=== PATIENT | female | born 2000 | race African-American/Black ===

== ENCOUNTER 2018-03-26 13:17 | Emergency (ER) | payer SELFPAY | END 2018-03-26 15:30 | disposition left against medical advice (07) | LOC: ERS 13:17 | DX: Z53.21 Procedure and treatment not carried out due to patient leaving prior to being seen by health care provider (principal) | CPT/HCPCS: 93005 ==

== ENCOUNTER 2018-04-30 16:30 | Day surgery (SDC) | payer OTHER ==
[2018-04-30 16:51] VITALS: BMI 22.4
[2018-04-30 16:56] VITALS: BP 103/63; TEMP 98.9
[2018-04-30 17:53] LABS: Bilirubin Negative (Negative); Blood, Urine Negative (Negative); Clarity CLOUDY (Clear); Glucose, Urine (Dipstick) Negative (Negative); Leukocyte Small (Negative); Nitrite Negative (Negative); Protein, Urine (Dipstick) Negative (Neg-Trace); Specific Gravity, Urine 1.019 (1.002-1.036)
[2018-04-30 17:55] LABS: Bacteria/HPF None Seen HPF (None Seen); Hyaline Casts/LPF 7-10 HYALINE CAST LPF (0-3 Hyaline); Pathc Cast-AUWi Flag 1.01 (0-2.49); RBC/HPF 0-3 HPF (0-3)
[2018-04-30 17:56] LABS: Renal Epithelial None Seen HPF (0-3); Transitional Epithelial 0-3 HPF (0-3)
--- NOTE | 2018-04-30 18:01 | HP ---
DATE OF ADMISSION: 04/30/2018 TIME OF EVALUATION: 1725 LOCATION: Labor and Delivery. This is a patient of Sanjana Torres at [facility]. REASON FOR EVALUATION: Pelvic pain at 29 weeks and 5 days. HISTORY OF PRESENT ILLNESS: This is a 17-year-old G1, P0 at 29 weeks and 5 days, patient of Sanjana Brian, who arrives with left back pain that radiates up and down her leg. She denies contractions o r leakage of fluid. She has good movement. She denies any recent trauma. She denies dysuria or fever. She denies hitting her back or any localized symptoms. REVIEW OF SYSTEMS: Complete review of systems was checked and is otherwise negative unless specified in the HPI. It is also important to note, however, that one significant positive was also that she has had on and off clear discharge for the last several weeks, but nothing that looks like a gush of fluid. She states that she sometimes does wear a panty liner for this discharge. PAST MEDICAL HISTORY: Negative. PAST SURGICAL HISTORY: Negative. ALLERGIES: None. OB HISTORY: She is a G1, P0. PHYSICAL EXAMINATION: VITAL SIGNS: The patient's blood pressure is 103/63, pulse is 117, temperature is 98.9. GENERAL: Clinically, she is in no acute distress. ABDOMEN: Soft and nontender. There is no costovertebral angle tenderness. There is no evidence of vaginal bleeding or ruptured membranes on perineal inspection. Cervical exam is currently deferred a s there are no complaints of contractions. INTERVENTIONS ORDERED: I have ordered an AmniSure as well as a cath UA. I have also ordered a compl ete metabolic profile for conservative care. MONITORS: heart tones are in the 140s-150s with moderate variability and accelerations. There is no evidence of decelerations. There are no real contractions on tocodynamometer except may be some mild irritability. ASSESSMENT: This is a 17-year-old G1, P0 at 29 weeks and 5 days, patient of Sanjana Torres, with lik roberto discomforts of . There is nothing on exam that points towards costovertebral angle tend erness or pyelonephritis. PLAN: 1. Check labs. 2. Due to vaginal discharge, I have ordered an AmniSure to make sure it is not rupture, but there is no evidence on the history of abnormal discharge that makes me suspect a BV, Trichomonas or yeast. 3. If her labs are normal, we may consider outpatient care. 4. I deferred a cervical exam as there is no luisa evidence of contractions or contraction complaint .
[2018-04-30 18:11] LABS: Amnisure Test No Membranes Rupture (No Rupture)
[2018-04-30 18:12] LABS: Amnisure Internal Control QC ACCEPTABLE (ACCEPTABLE)
--- NOTE | 2018-04-30 18:18 | PDOC.EVN ---
Event Note - Event Note Event Note: Amnisure negative UA with no bacteria seen, but small WBCs (also some squ cells). No sxs of UTI. I do not feel urine is c/u infection and there is no evidence of pyelo. My DX is discomforts of at this time.
[2018-04-30 18:31] LABS: ALT (SGPT) 7 U/L (8-55); AST (SGOT) 15 U/L (5-30); Albumin 3.6 g/dL (3.5-5.0); Alkaline Phosphatase 86 U/L (40-150); Anion Gap 10 mmol/L (10-20); BUN (Urea Nitrogen) 9 mg/dL (8.4-21.0); Bilirubin, Total 0.4 mg/dL (0.2-1.2); Calc. Creatinine Clearance 131 mL/min (70-130); Calcium 8.9 mg/dL (7.8-10.44); Carbon Dioxide 23 mmol/L (22-29); Chloride 106 mmol/L (98-107); Estimated GFR-MDRD Greater than 90; Globulin 3.5 g/dL (2.4-3.5); Glucose 80 mg/dL (70-105); Potassium 3.6 mmol/L (3.5-5.1); Protein, Total 7.1 g/dL (6.0-8.3); Sodium 135 mmol/L (136-145)
== END 2018-04-30 18:40 | disposition home health service (06) ==
LOC: L&D/OP 16:30
PROVIDERS: ATTEND Advanced Practice Midwife
DX: O99.89 Other specified diseases and conditions complicating pregnancy, childbirth and the puerperium (principal); R10.2 Pelvic and perineal pain; Z3A.29 29 weeks gestation of pregnancy
CPT/HCPCS: 36415; 51701; 80053; 81003; 81015; 84112; 99283

== ENCOUNTER 2018-05-10 15:45 | Day surgery (SDC) | payer OTHER ==
[2018-05-10 16:34] VITALS: BMI 23.2
[2018-05-10 17:42] LABS: #Basophils 0.1 thou/uL (0.0-0.2); #Eosinphils 0.1 thou/uL (0.0-0.7); #Lymphocytes 1.5 thou/uL (1.20-3.40); #Monocytes 0.5 thou/uL (0.11-0.59); #Neutrophils 9.1 thou/uL (1.40-6.50); %Basophils 0.7 % (0.0-1.0); %Eosinophils 0.8 % (0.0-10.0); %Lymphocytes 13.5 % (28.0-48.0); %Monocytes 4.8 % (0.0-4.0); %Neutrophils 80.2 % (31.0-61.0); Hemoglobin 9.9 g/dL (12.0-16.0); Mean Corpuscular HGB CONC 31.1 g/dL (32.0-36.0); Mean Corpuscular Hemoglobin 24.7 pg (25.0-35.0); Mean Corpuscular Volume 79.4 fL (78.0-98.0); Platelet Count 286 thou/uL (130-400); RBC Distribution Width 12.4 % (11.5-14.5); White Blood Cell (WBC) Count 11.3 thou/uL (4.8-10.8)
[2018-05-10] MEDS ORDERED: Lactated Ringer's 1,000 ML IV SCH ×2 (17:45→19:45)
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
[2018-05-10 18:04] LABS: ALT (SGPT) 8 U/L (8-55); AST (SGOT) 17 U/L (5-30); Albumin 3.8 g/dL (3.5-5.0); Alkaline Phosphatase 98 U/L (40-150); Anion Gap 13 mmol/L (10-20); BUN (Urea Nitrogen) 9 mg/dL (8.4-21.0); Bilirubin, Total 0.3 mg/dL (0.2-1.2); Calc. Creatinine Clearance 131 mL/min (70-130); Calcium 8.9 mg/dL (7.8-10.44); Carbon Dioxide 23 mmol/L (22-29); Chloride 106 mmol/L (98-107); Estimated GFR-MDRD Greater than 90; Globulin 3.3 g/dL (2.4-3.5); Glucose 74 mg/dL (70-105); Magnesium 1.6 mg/dL (1.7-2.2); Potassium 3.8 mmol/L (3.5-5.1); Protein, Total 7.1 g/dL (6.0-8.3); Sodium 138 mmol/L (136-145)
[2018-05-10 18:52] LABS: Bilirubin Negative (Negative); Blood, Urine Negative (Negative); Clarity CLEAR (Clear); Glucose, Urine (Dipstick) Negative (Negative); Leukocyte Moderate (Negative); Nitrite Negative (Negative); Protein, Urine (Dipstick) Trace mg/dL (Neg-Trace); Specific Gravity, Urine 1.012 (1.002-1.036); pH, Urine 7.5 (5.0-9.0)
[2018-05-10 18:54] LABS: Hyaline Casts/LPF 0-3 HYALINE CAST LPF (0-3 Hyaline); Pathc Cast-AUWi Flag 0.29 (0-2.49); RBC/HPF 0-3 HPF (0-3)
[2018-05-10] MEDS ORDERED: Magnesium 2 GM/50 ML 2 GM in Premix Bag 1 BAG IVPB SCH (19:00)
[2018-05-10 19:03] LABS: Amphetamine Not Detected (NotDetected); Barbiturates Screen Not Detected (NotDetected); Benzodiazepine Screen Not Detected (NotDetected); Cocaine Metabolite Screen Not Detected (NotDetected); Medtox Control Line Valid? VALID (VALID); Medtox Reader # READER 1; Methadone Not Detected (NotDetected); Methamphetamine Not Detected (NotDetected); Opiate Screen Not Detected (NotDetected); Oxycodone Screen Not Detected (NotDetected); Phencyclidine (PCP) Not Detected (NotDetected); THC/Cannabinoid Screen Not Detected (NotDetected); Tricyclic Screen Not Detected (NotDetected)
[2018-05-10 19:13] LABS: Bacteria/HPF 1+ HPF (None Seen); Yeast-All Forms None Seen HPF (None Seen)
[2018-05-10 19:14] LABS: Trichomonas/HPF None Seen HPF (None Seen)
== END 2018-05-10 20:30 | disposition home or self-care (01) ==
LOC: L&D/OP 15:45
PROVIDERS: ATTEND Obstetrics & Gynecology
DX: O99.89 Other specified diseases and conditions complicating pregnancy, childbirth and the puerperium (principal); R55 Syncope and collapse; Z3A.31 31 weeks gestation of pregnancy
CPT/HCPCS: 80053; 80306; 81003; 81015; 83735; 85025; 87086; 93005; 93010; 96361; 96365; 96366; 99284

== ENCOUNTER 2018-07-12 07:07 | Day surgery (SDC) | payer OTHER ==
[2018-07-12 07:44] VITALS: BMI 25.1
--- NOTE | 2018-07-12 08:34 | PDOC.LDHP ---
Labor and Delivery H&P Chief complaint: loss of fluid HPI: Here for possible LOF Patient of Ayanna Torres HPI: 18 yo G1 with EDC 07/11/18, here with LOF at 0600...wet her panty liner. No VB, good FM, no HAs. Review of Systems: complete ROS performed and as per HPI Current gestational age (weeks): 40 (1 day) Due date: 07/11/18 Dating criteria: last menstrual period Grav: 1 Para: 0 Current complications: none Abnormal US findings: No Current medications: pre- vitamins Previous surgical history: none Allergies/Adverse Reactions: Allergies Allergy/AdvReac Type Severity Reaction Status Date / Time No Known Allergies Allergy Verified 05/10/18 16:32 - Physical Exam Vital signs reviewed and normal: yes (114/70s afebrile) General: NAD Heart: RRR Lungs: CTAB Abdomen: gravid (size appropriate) Extremeties: no edema FHT: category 1 (130-140s) [place] contractions every: rare - Vaginal Exam cm dilated: 1 (at most, per RN exam) Effacement: 75% Station: -1 - Assessment Possible LOF at full term; GBS negative; primiparous. - Plan Plan: observation in L&D (I have ordered amnisure as screen; then I will follow up with sterile spec exam; FHTs cat 1)
[2018-07-12 08:35] LABS: Amnisure Test No Membranes Rupture (No Rupture)
[2018-07-12 08:36] LABS: Amnisure Internal Control QC ACCEPTABLE (ACCEPTABLE)
--- NOTE | 2018-07-12 09:44 | PDOC.EVN ---
Event Note - Event Note Event Note: Amnisure negative SSE pending
--- NOTE | 2018-07-12 10:10 | PDOC.EVN ---
Event Note - Event Note Event Note: sterile speculum explain to the patient. Exam performed by me. There is evidence of vaginal yeast. There is no evidence of ROM. Cough test negative. We will treat with diflucian orally. Has follow up with Sanjana Torres.
[2018-07-12] MEDS ORDERED: Fluconazole 100 MG TAB PO SCH (10:15)
== END 2018-07-12 11:05 | disposition home or self-care (01) ==
LOC: L&D/OP 07:07
PROVIDERS: ATTEND Advanced Practice Midwife
DX: O99.89 Other specified diseases and conditions complicating pregnancy, childbirth and the puerperium (principal); N89.8 Other specified noninflammatory disorders of vagina; Z3A.40 40 weeks gestation of pregnancy; Z79.899 Other long term (current) drug therapy
CPT/HCPCS: 84112

== ENCOUNTER 2018-07-13 21:51 | Inpatient (IN) | payer OTHER ==
[2018-07-13 22:24] VITALS: BMI 25.1
[2018-07-13 22:40] LABS: Amnisure Test RUPTURE DETECTED (No Rupture)
[2018-07-13 22:41] LABS: Amnisure Internal Control QC ACCEPTABLE (ACCEPTABLE)
[2018-07-13] MEDS ORDERED: Ibuprofen 800 MG TAB PO PRN (22:51)
[2018-07-13] MEDS ORDERED: Lidocaine 1% (PF) 30 ML VIAL SC PRN (22:51)
[2018-07-13] MEDS ORDERED: Ondansetron PF 4 MG/2 ML Vial IVP PRN (22:51)
[2018-07-13] MEDS ORDERED: NS / Oxytocin 40 units/1000ml 1,000 ML IV PRN (22:51)
[2018-07-13] MEDS ORDERED: HYDROcodone/Acetaminophen 5/325 mg Tablet PO PRN ×2 (22:51)
[2018-07-13] MEDS ORDERED: NS w/ Oxytocin 10 units 500 ML IV SCH (23:00)
[2018-07-13] MEDS ORDERED: Lactated Ringer's 1,000 ML IV SCH (23:00)
[2018-07-13] MEDS: Lactated Ringer's 1,000 ML IV SCH (23:24)
[2018-07-13 23:35] LABS: Hemoglobin 9.5 g/dL (12.0-16.0); Mean Corpuscular Hemoglobin 24.2 pg (25.0-35.0); Mean Corpuscular Volume 73.2 fL (78.0-98.0); Mean Platelet Volume 7.6 fL (7.4-10.4); Platelet Count 252 thou/uL (130-400); RBC Distribution Width 14.4 % (11.5-14.5); Red Blood Cell (RBC) Count 3.92 mill/uL (4.00-5.20); White Blood Cell (WBC) Count 16.9 thou/uL (4.8-10.8)
[2018-07-14 00:14] LABS: HBSAg Index 0.26 S/CO (0-0.99); Hep B Surf Ag Non-Reactive S/CO (NonReactive)
[2018-07-14 00:18] LABS: Syphilis Antibody Nonreactive (Nonreactive); Syphilis Antibody Index 0.05 S/CO (<1.00 Non-Reactive)
[2018-07-14] MEDS: Lactated Ringer's 1,000 ML IV SCH ×3 (02:57→17:04)
[2018-07-14] MEDS ORDERED: Fentanyl 4 mcg/Bup 0.1% Cadd 100 ML ONE (03:30)
[2018-07-14] MEDS ORDERED: Lidocaine 1.5%/Epinephrine 1:200,000 5 ML AMPUL IJ ONE (03:30)
[2018-07-14] MEDS ORDERED: Naloxone HCl 0.4 mg/ml Vial IVP PRN ×4 (04:25→10:21)
[2018-07-14] MEDS ORDERED: Eucerin (Mineral Oil/Petrolatum,White) 30 gm Jar TOP PRN ×2 (04:25→10:21)
[2018-07-14] MEDS ORDERED: Lactated Ringer's 500 ML IV PRN (04:25)
[2018-07-14] MEDS ORDERED: ePHEDrine/0.9% NaCl/PF SYRINGE 50 mg/10 ml SLOW IVP PRN (04:25)
[2018-07-14] MEDS ORDERED: Acetaminophen 325 MG TAB PO PRN (04:25)
[2018-07-14] MEDS ORDERED: Ondansetron PF 4 MG/2 ML Vial IVP PRN ×2 (04:25→10:21)
[2018-07-14] MEDS ORDERED: diphenhydrAMINE 50 MG/ML VIAL IVP PRN ×2 (04:25→10:21)
[2018-07-14] MEDS ORDERED: Promethazine HCl 25 MG/ML VIAL IM PRN ×2 (04:25→10:21)
[2018-07-14] MEDS ORDERED: Fentanyl 4 mcg/Bupivacaine 0.1% Cassette 100 ML EPIDURAL SCH (04:30)
[2018-07-14] MEDS ORDERED: Communication Order-Pharmacy FS SCH ×2 (04:30→10:30)
[2018-07-14] MEDS ORDERED: Acetaminophen 1,000 MG in Premix Bag 1 BAG IVPB PRN (05:13)
--- NOTE | 2018-07-14 05:16 | PDOC.EVN ---
Event Note - Event Note Event Note: Called with maternal fever. dx with chorioammionitis. Amp 2gm q6hr and gentamycin 5mg/kg q24 and iv tylenol ordered.
[2018-07-14] MEDS: Ampicillin 2 GM in Sodium Chloride 0.9% 100 ML IVPB SCH ×4 (05:45→23:27)
[2018-07-14] MEDS: Gentamicin Sulfate 290 MG in Sodium Chloride 0.9% 100 ML IVPB SCH (06:20)
--- NOTE | 2018-07-14 08:29 | PRG ---
DATE OF SERVICE: 07/14/2018 INTRAPARTUM PROGRESS NOTE PRIMARY INSOLE BOTTOM FILLER: Ms. Sanjana Torres CNM SUBJECTIVE: The patient is a 18-year-old primi, who was admitted late last night at 40 weeks' gestation with complaints of leakage of fluid. By history, she could experience rupture of membranes over 24 hours ago at the time of admission. She was admitted for augmentation of her contractions. Overnight, she has been on Pitocin with the baby having difficulty tolerating contractions at times, requiring Pitocin to be turned off this morning for repetitive late decelerations. Since that time, the patient has been placed on oxygen and on the left lateral position, baby has recovered appropriately. In the meantime, overnight, patient has spiked a fever up to 102 and has been placed on ampicillin and gentamicin, and has been given IV Tylenol. Her primary OB is Ms. Sanjana Torres, who will be resuming care this morning. Plan at this time would be to rest the baby for an hour or two and resume Pitocin. If not tolerated, we will proceed with . Mother has proceeded to cervical exam of 5 cm this morning. Job ID: [id number]
--- NOTE | 2018-07-14 08:48 | PDOC.EVN ---
Event Note - Event Note Event Note: PREOP CS Note: Agricultural Adviser OBGYN Note I assumed care of this patient at 0800 this AM. Case reviewed. Aware of Temp 102 prevuiously. last exam was 5cm and pitociun now off due to persistent late decels, moderate variability persists. IVF boluses and maternal position changes have been attempted...persistent lates. I have evaluated the strip and discussed with the patient and family at bedside. Due to persistent Class 2 FHTs and intrapartum fever, I have elected for primary CS. BELEN in use. I have contacted Clementine Torres to make her aware (call and Text without HPI) but have not heard back. DX: Persistent Class 2 FHTs remote from delivery IAI
[2018-07-14] MEDS ORDERED: Varicella virus, LIVE 0.5 ML VIAL SC ONE (08:50)
[2018-07-14] MEDS ORDERED: Lanolin Ointment 7 GM TUBE TOP PRN (08:50)
[2018-07-14] MEDS ORDERED: Measles/Mumps/Rubella 10 MCG/0.5 ML VIAL SC ONE (08:50)
[2018-07-14] MEDS ORDERED: Adacel (T-DAP) 0.5 ML SYRINGE IM ONE (08:50)
[2018-07-14] MEDS ORDERED: Acetaminophen/Codeine 30-300mg Tablet PO PRN ×2 (08:50)
[2018-07-14] MEDS ORDERED: Simethicone Chewable 80 MG TAB PO PRN (08:50)
[2018-07-14] MEDS ORDERED: Bicitra 30 ML UDCUP ONE (08:54)
[2018-07-14] MEDS ORDERED: Azithromycin 500 MG in Sodium Chloride 0.9% 250 ML 250 ML IVPB SCH (09:00)
[2018-07-14] MEDS ORDERED: Oxytocin 10 UNITS/ML VIAL ONE (09:02)
[2018-07-14] MEDS ORDERED: Morphine PF 1 MG/ML SYR ONE ×2 (09:02→10:18)
[2018-07-14] MEDS ORDERED: Ondansetron PF 4 MG/2 ML Vial ONE (09:17)
[2018-07-14] MEDS ORDERED: Ketorolac Tromethamine 30 MG/ML VIAL ONE (09:17)
[2018-07-14] MEDS ORDERED: Lidocaine 2% 10 ML INJ ONE (09:17)
[2018-07-14] MEDS ORDERED: Dexamethasone 4 mg/ml Vial ONE (09:17)
[2018-07-14] MEDS ORDERED: Fentanyl 100 MCG/2 ML VIAL ONE (09:19)
[2018-07-14] MEDS ORDERED: Succinylcholine Chloride 20 MG/ML 10 ml SYRINGE FS ONE (09:19)
[2018-07-14] MEDS ORDERED: PROPOFOL 20 ML ONE (09:19)
[2018-07-14] MEDS ORDERED: Lidocaine 1% PF 5 ML VIAL ONE (09:25)
[2018-07-14] MEDS ORDERED: Ketamine 50 MG/ML (10ML VIAL) ONE (09:26)
[2018-07-14] MEDS ORDERED: ePHEDrine/0.9% NaCl/PF SYRINGE 50 mg/10 ml ONE (09:44)
[2018-07-14] MEDS ORDERED: Promethazine HCl 25 MG SUPP PR PRN (10:21)
[2018-07-14] MEDS ORDERED: HYDROmorphone 2 MG/ML VIAL SLOW IVP PRN (10:21)
[2018-07-14] MEDS ORDERED: Ketorolac Tromethamine 30 MG/ML VIAL IVP PRN (10:21)
[2018-07-14] MEDS ORDERED: Meperidine HCl/PF 25 MG/ML VIAL SLOW IVP PRN (10:21)
[2018-07-14] MEDS ORDERED: Naloxone HCl 0.4 mg/ml Vial IV PRN (10:21)
[2018-07-14] MEDS ORDERED: Ondansetron HCl/PF 4 MG/2 ML Vial IVP PRN (10:21)
[2018-07-14] MEDS ORDERED: L&D-Morphine 4 MG/ML VIAL SLOW IVP PRN (10:21)
--- NOTE | 2018-07-14 10:22 | PDOC.EVN ---
Event Note - Event Note Event Note: OB Lab [facility]; Umbilical arterial gas was 7.3. By the RN (Randi) that obtained it, definate arterial source verified at draw by Dr Upton (Mickey)
[2018-07-14 10:28] LABS: Actual Bicarbonate (HCO3a) 18.6 mEq/L (22-28); Analyzer IN Cardio OR; Base Excess (BEa) -6.7 mEq/L (-2.0 to +3.0)
--- NOTE | 2018-07-14 10:56 | OP ---
DATE OF PROCEDURE: 07/14/2018 NOTE LOCATION: Labor and Delivery OR. PREOPERATIVE DIAGNOSIS: Primigravida at full term with suspected intraamniotic infection on antibiotics, with recurrent and persistent late decelerations (persistent class II Decels). POSTOPERATIVE DIAGNOSES: 1. Primigravida at full term with suspected intraamniotic infection on antibiotics, with recurrent and persistent late decelerations (persistent class II Decels). 2. Status post primary . PROCEDURE PERFORMED: Primary low transverse via Pfannenstiel skin incision. LOAN DOCUMENTATION SPECIALIST: Gianluca Dupree MD. ANESTHESIA: Labor epidural, progressing to general endotracheal anesthesia. Please note: The patient underwent general endotracheal anesthesia conversion just after fascial entry due to pain intolerance. We attempted to do inhalational anesthetics with Nitronox inhalation therapy, but the patient could not tolerate surgical intervention. We progressed to general endotracheal intubation prior to baby delivery. ANTIBIOTICS: Ampicillin and gentamicin given intrapartum and Zithromax given perioperatively. FINDINGS: 1. There was a baby in a cephalic presentation, which is male. 2. No nuchal cord. 3. Three-vessel cord, intact placenta. 4. There is a strong amine odor upon entry to the uterine cavity. 5. Baby had depressed respirations requiring PPV by NICU. 6. NICU present for delivery. 7. Baby proceeded to NICU for care. 8. No evidence of intraabdominal pelvic pathology. ESTIMATED BLOOD LOSS: 600 to 700 mL, Q BL pending. IV FLUIDS: 900 mL crystalloid. URINE OUTPUT: By Patterson about 200 mL. PATHOLOGY: Placenta. LABORATORY SENT: Includes umbilical arterial cord gas. COMPLICATIONS: None. COUNTS: Correct. DISPOSITION: To recovery room in good and stable condition. INDICATIONS FOR DELIVERY: In brief, I arrived nursing education consultant this morning and evaluated the patient at the request of the patient's nurse. We discussed the patient's heart tracing, which was persistent category 2, and in the setting of suspected intraamniotic infection, at 5 cm, which is remote from delivery, the plan was made for primary . TECHNIQUE: After proper informed consent was explained to the patient, she was taken to the operating room in Labor and Delivery where she was placed under dosage. However, labor epidural anesthetic. The patient's abdomen was prepped and draped in the usual sterile fashion. The patient's abdomen was then prepared and a Pfannenstiel skin incision was made with a scalpel. Bovie cautery on cut mode was used to dissect the subcutaneous tissue down to the level of the fascia. After we attempted fascial opening, the patient complained of pain intolerability. At this time, we tried Nitronox, which was unsuccessful. Anesthesia made a decision to proceed to general endotracheal anesthesia. After intubation (about 5 minutes to 6 minutes after skin entry), we proceeded with abdominal entry. No complications were made with entry into the abdominal pelvic cavity. No ascites was noted. A low transverse hysterotomy was made without bladder flap creation. Baby was in a cephalic presentation and delivered without trauma. The cord was doubly clamped and transected after 30 seconds of delayed cord clamping was performed. Baby was handed to the NICU team who was present for delivery. The placenta was gently massaged out of the uterine cavity and it was intact. It was delivered by Stokes mechanism. It was sent to pathology for documentation for suspected intraamniotic infection. A dry laparotomy sponge was used to curettage the uterine cavity signifying the lack of any retained products of conception. The uterus was left in situ for repair. Uterus was closed in two layers using #1 Vicryl with the 1st layer being a running locking fashion and the 2nd being a running nonlocking suture. After copious irrigation was performed, no bleeding was identified. We then closed the parietal peritoneum using 2-0 chromic suture. The fascia was then closed using 0 PDS x2 in the usual running nonlocking fashion. Copious irrigation was done of the subcutaneous tissue and since it was less than 2 cm, it was not closed. We closed the skin in a running subcuticular stitch using Monocryl (3-0). Dr. Dupree assisted with skin closure. At the end of the procedure, Dermabond is placed over the incision to serve as a barrier and as a skin adhesive as well. The patient will be extubated and taken to routine recovery. We did obtain a cord gas which is pending at the time of this dictation. Job ID: [id number] [facility] SYSTEM[facility]
[2018-07-14] MEDS: Prenatal Vitamin 1 TAB PO SCH (12:00)
[2018-07-14] MEDS: Clindamycin/D5W 900 MG in Premix Bag 1 BAG IVPB SCH ×2 (12:41→20:02)
[2018-07-14] MEDS ORDERED: Bupivacaine HCl 0.25%/Epi 0.0005/PF 10 ML VIAL FS ONE (12:59)
[2018-07-14] MEDS ORDERED: Bupivacaine HCl 0.5%/Epinephrine 1:200,000/PF 30 ml Vial ONE (12:59)
[2018-07-14] MEDS: Ibuprofen 800 MG TAB PO SCH ×2 (13:33→21:11)
--- NOTE | 2018-07-14 20:50 | PDOC.EVN ---
Event Note - Event Note Event Note: POD 0: Temp check: No fever since arrived to . Continue triple antibiotics
--- NOTE | 2018-07-15 00:27 | PDOC.PP ---
Post Progress Note Post Day #: 0 to 1 Subjective: Doing well, interested in , only minor uterine cramps reported PO intake tolerated: yes Flatus: yes Ambulation: yes (limited) Vital Signs (12 hours) Temp Pulse Resp BP Pulse Ox 07/14/18 23:33 98.8 F 84 16 100/56 L 07/14/18 20:00 97.7 F 62 16 103/52 L 100 07/14/18 16:50 98.0 F 75 18 99/57 L 98 07/14/18 15:15 98.0 F 78 16 99/55 L 98 07/14/18 14:05 97.9 F 76 16 91/52 L 96 07/14/18 13:10 98.4 F 86 16 103/56 L 98 Weight Weight 142 lb - Physical Examination General: NAD Cardiovascular: no m/r/g Respiratory: clear to auscultation bilaterally Abdominal: + bowel sounds, lochia, no distention, appropriately TTP Extremities: negative homans (B) Skin: CS incision dry & intact (sutured closed and DB) Neurological: no gross focal deficits Psychiatric: A&Ox3, normal affect Result Diagrams: 07/13/18 23:25 Additional Labs: Post Labs Blood Type O POSITIVE 07/13/18 23:25 Hep Bs Antigen Non-Reactive S/CO (NonReactive) 07/13/18 23:25 (1) delivery delivered Code(s): O82 - ENCOUNTER FOR DELIVERY WITHOUT INDICATION Status: Acute (2) Chorioamnionitis in third trimester Code(s): O41.1230 - CHORIOAMNIONITIS, THIRD TRIMESTER, NOT APPLICABLE OR UNSP Status: Acute - Assessment/Plan POD 0 to 1 today (CS on 07/14/18 AM): Doing well. Afebrile since delivery; Still on A/G/C abx IV...continue as maternal temp was 102 pre-delivery; I discussed that she will likely stay until POD 3. Consider stopping ABX tomorrow 07/16/18 if afebrile today on the . HCT pending for AM run
[2018-07-15] MEDS: Clindamycin/D5W 900 MG in Premix Bag 1 BAG IVPB SCH ×3 (03:24→21:27)
[2018-07-15] MEDS: Gentamicin Sulfate 290 MG in Sodium Chloride 0.9% 100 ML IVPB SCH (04:52)
[2018-07-15 05:35] LABS: Hemoglobin 7.2 g/dL (12.0-16.0); Mean Corpuscular HGB CONC 32.4 g/dL (32.0-36.0); Mean Corpuscular Hemoglobin 24.2 pg (25.0-35.0); Mean Corpuscular Volume 74.6 fL (78.0-98.0); Mean Platelet Volume 7.5 fL (7.4-10.4); Platelet Count 142 thou/uL (130-400); RBC Distribution Width 14.3 % (11.5-14.5); Red Blood Cell (RBC) Count 2.96 mill/uL (4.00-5.20); White Blood Cell (WBC) Count 21.2 thou/uL (4.8-10.8)
[2018-07-15] MEDS: Ampicillin 2 GM in Sodium Chloride 0.9% 100 ML IVPB SCH ×4 (06:09→23:11)
[2018-07-15] MEDS: Ibuprofen 800 MG TAB PO SCH ×3 (06:09→21:28)
--- NOTE | 2018-07-15 07:24 | PDOC.PP ---
Post Progress Note Post Day #: 1 Subjective: Pt is resting in bed. Pt denies any acute events overnight. Pt denies any fever or chills. Denies any headache, lightheadness, or dizziness. Pt reports pain being well controlled at this time. Pt is tolerating PO. Reports passing gas. Reports minimal bleeding. PO intake tolerated: yes Flatus: yes Ambulation: yes Vital Signs (12 hours) Temp Pulse Resp BP BP Pulse Ox 07/15/18 04:50 98.1 F 82 16 105/62 07/14/18 23:33 98.8 F 84 16 100/56 L 07/14/18 20:00 97.7 F 62 16 103/52 L 100 Weight Weight 64.41 kg - Physical Examination General: NAD Cardiovascular: no m/r/g, RRR Respiratory: clear to auscultation bilaterally, non-labored breathing Abdominal: + bowel sounds, no distention Deviation from normal: Pt mildly tender to palpation Fundus firm & at: umbilicus Extremities: negative homans (B) Skin: CS incision dry & intact Deviation from normal: No sign of drainage or redness. Neurological: no gross focal deficits Psychiatric: A&Ox3, normal affect Result Diagrams: 07/15/18 05:22 Additional Labs: Post Labs Blood Type O POSITIVE 07/13/18 23:25 Hep Bs Antigen Non-Reactive S/CO (NonReactive) 07/13/18 23:25 (1) delivery delivered Code(s): O82 - ENCOUNTER FOR DELIVERY WITHOUT INDICATION Status: Acute (2) Chorioamnionitis in third trimester Code(s): O41.1230 - CHORIOAMNIONITIS, THIRD TRIMESTER, NOT APPLICABLE OR UNSP Status: Acute (3) Late deceleration of heart rate Code(s): O36.8390 - MATERN CARE FOR ABNLT FETL HRT RATE OR RHYM, UNSP TRI, UNSP Status: Resolved (4) Anemia affecting Code(s): O99.019 - ANEMIA COMPLICATING , UNSPECIFIED TRIMESTER Status : Acute - Assessment/Plan ->1 @ 40.2 weeks delivered a TAGA M via Primary LTCS due to Chorioamnionits. -POD #1 -Pt reports pain being well controlled. Continue current regimen. -Routine post care. Chorioamnionitis -Pt had fever of 102 before delivery. -Afebrile overnight. -Continue amp, clinda and azithro for another 24 hours. -VS stable Anemia of -VS stable -Hgb down from 9.5->7.2. On PNV. -Denies any signs or sx's at this time.
--- NOTE | 2018-07-15 08:03 | PDOC.EVN ---
Event Note - Event Note Event Note: HCT noted at 22, no PPH HX...recheck AM run
[2018-07-15] MEDS: Lactated Ringer's 1,000 ML IV SCH ×2 (09:09→14:51)
[2018-07-15] MEDS ORDERED: HYDROcodone/Acetaminophen 5/325 mg Tablet PO PRN (09:26)
[2018-07-15] MEDS: Prenatal Vitamin 1 TAB PO SCH (09:35)
[2018-07-16] MEDS: Lactated Ringer's 1,000 ML IV SCH ×3 (02:38→14:19)
[2018-07-16] MEDS: Ibuprofen 800 MG TAB PO SCH ×2 (05:02→14:19)
[2018-07-16] MEDS: Ampicillin 2 GM in Sodium Chloride 0.9% 100 ML IVPB SCH ×2 (05:03→11:09)
[2018-07-16] MEDS: Clindamycin/D5W 900 MG in Premix Bag 1 BAG IVPB SCH ×2 (05:03→10:44)
[2018-07-16] MEDS: Gentamicin Sulfate 290 MG in Sodium Chloride 0.9% 100 ML IVPB SCH (05:04)
--- NOTE | 2018-07-16 07:01 | PRG ---
DATE OF SERVICE: 07/16/2018 SUBJECTIVE: The patient is postop day 2, status post primary for non-reassuring heart tones and intra-amniotic infection and is now been on ampicillin, gentamicin, and clindamycin for nearly 48 hours. The patient reports that she is feeling well. Reports good pain control. She is ambulating, tolerating p.o., and having decreased lochia. OBJECTIVE: VITAL SIGNS: Most recent include a blood pressure of 92/54, temperature of 98, pulse of 72, respiratory rate of 16, saturating 99% on room air. GENERAL: She appears to be in no acute distress. She is alert, oriented, cooperative, and pleasant to interact with. HEENT: Head is normocephalic and atraumatic. FUNDUS: Tender appropriately with the fundus firm at the umbilicus. Incision is clean, dry, and intact with Dermabond. ASSESSMENT AND PLAN: The patient is postop day 2, status post a primary for non-reassuring heart tones complicated by intra-amniotic infection. The patient's antibiotics will be discontinued this afternoon about noon and will continue in-house postoperative care with anticipation of discharge in the next 1 to 2 days. Job ID: [id number]
[2018-07-16 07:16] LABS: #Basophils 0.1 thou/uL (0.0-0.2); #Eosinphils 0.2 thou/uL (0.0-0.7); #Lymphocytes 2.5 thou/uL (1.20-3.40); #Monocytes 0.7 thou/uL (0.11-0.59); #Neutrophils 14.7 thou/uL (1.40-6.50); %Basophils 0.4 % (0.0-1.0); %Lymphocytes 13.8 % (28.0-48.0); %Monocytes 3.8 % (0.0-4.0); Hemoglobin 7.3 g/dL (12.0-16.0); Mean Corpuscular Hemoglobin 23.9 pg (25.0-35.0); Mean Corpuscular Volume 74.8 fL (78.0-98.0); Mean Platelet Volume 7.8 fL (7.4-10.4); Platelet Count 186 thou/uL (130-400); RBC Distribution Width 14.2 % (11.5-14.5); Red Blood Cell (RBC) Count 3.05 mill/uL (4.00-5.20); White Blood Cell (WBC) Count 18.2 thou/uL (4.8-10.8)
[2018-07-16 07:59] LABS: #Eosinphils 0.2 thou/uL (0.0-0.7); #Lymphocytes 2.7 thou/uL (1.20-3.40); #Monocytes 0.6 thou/uL (0.11-0.59); #Neutrophils 14.9 thou/uL (1.40-6.50); %Basophils 0.2 % (0.0-1.0); %Lymphocytes 14.7 % (28.0-48.0); %Monocytes 3.2 % (0.0-4.0); %Neutrophils 80.9 % (31.0-61.0); Hemoglobin 7.2 g/dL (12.0-16.0); Mean Corpuscular HGB CONC 34.7 g/dL (32.0-36.0); Mean Platelet Volume 8.1 fL (7.4-10.4); Platelet Count 187 thou/uL (130-400); RBC Distribution Width 14.3 % (11.5-14.5); Red Blood Cell (RBC) Count 2.78 mill/uL (4.00-5.20); White Blood Cell (WBC) Count 18.4 thou/uL (4.8-10.8)
[2018-07-16] MEDS: Prenatal Vitamin 1 TAB PO SCH (10:12)
[2018-07-16] MEDS: HYDROcodone/Acetaminophen 5/325 mg Tablet PO PRN ×2 (11:34→19:06)
[2018-07-17] MEDS: Ibuprofen 800 MG TAB PO SCH ×3 (02:08→14:32)
[2018-07-17] MEDS: Lactated Ringer's 1,000 ML IV SCH ×2 (02:08→09:34)
[2018-07-17] MEDS: HYDROcodone/Acetaminophen 5/325 mg Tablet PO PRN (02:20)
--- NOTE | 2018-07-17 05:38 | PDOC.PP ---
Post Progress Note Post Day #: 3 Subjective: Doing well without complaints. Wishes to go home today if possible. PO intake tolerated: yes Flatus: yes Ambulation: yes Weight Weight 142 lb - Physical Examination General: NAD Respiratory: non-labored breathing Abdominal: lochia (normal), no distention, appropriately TTP Extremities: negative homans (B) Skin: CS incision dry & intact, no rash Neurological: no gross focal deficits Psychiatric: A&Ox3, normal affect Result Diagrams: 07/16/18 07:15 Additional Labs: Post Labs Blood Type O POSITIVE 07/13/18 23:25 Hep Bs Antigen Non-Reactive S/CO (NonReactive) 07/13/18 23:25 (1) delivery delivered Code(s): O82 - ENCOUNTER FOR DELIVERY WITHOUT INDICATION Status: Acute (2) Chorioamnionitis in third trimester Code(s): O41.1230 - CHORIOAMNIONITIS, THIRD TRIMESTER, NOT APPLICABLE OR UNSP Status: Acute - Assessment/Plan Doing well, s/p antibiotics (d/c'd 07/16 at noon). Will continue to watch this morning (24 hours post antibiotics) with possible d/c later today.
[2018-07-17 08:05] VITALS: BP 107/56; TEMP 98.2
[2018-07-17] MEDS: Prenatal Vitamin 1 TAB PO SCH (09:59)
[2018-07-17 14:59] LABS: #Basophils 0.1 thou/uL (0.0-0.2); #Eosinphils 0.2 thou/uL (0.0-0.7); #Lymphocytes 2.2 thou/uL (1.20-3.40); #Monocytes 0.6 thou/uL (0.11-0.59); #Neutrophils 9.9 thou/uL (1.40-6.50); %Basophils 0.4 % (0.0-1.0); %Eosinophils 1.7 % (0.0-10.0); %Lymphocytes 17.2 % (28.0-48.0); %Monocytes 4.3 % (0.0-4.0); %Neutrophils 76.5 % (31.0-61.0); Hemoglobin 8.7 g/dL (12.0-16.0); Mean Corpuscular HGB CONC 31.8 g/dL (32.0-36.0); Mean Corpuscular Hemoglobin 23.3 pg (25.0-35.0); Mean Corpuscular Volume 73.4 fL (78.0-98.0); Mean Platelet Volume 7.6 fL (7.4-10.4); Platelet Count 290 thou/uL (130-400); RBC Distribution Width 14.3 % (11.5-14.5); Red Blood Cell (RBC) Count 3.74 mill/uL (4.00-5.20)
== END 2018-07-17 17:35 | disposition home or self-care (01) | DRG 786 ==
LOC: L&D/OP 21:51 → L&D-LIB 22:53 → L&D 23:50 → 3SW 07-14 13:23
PROVIDERS: ADMIT Obstetrics & Gynecology; ATTEND Obstetrics & Gynecology
PROC: 10D00Z1 Extraction of Products of Conception, Low, Open Approach (ICD-10-PCS; principal; 2018-07-14)
DX: O99.013 Anemia complicating pregnancy, third trimester (principal); O41.1230 Chorioamnionitis, third trimester, not applicable or unspecified; O76 Abnormality in fetal heart rate and rhythm complicating labor and delivery; D64.9 Anemia, unspecified; Z3A.40 40 weeks gestation of pregnancy; Z37.0 Single live birth
CPT/HCPCS: 36415; 51702; 82805; 84112; 85025; 85027; 86780; 86850; 86900; 86901; 87340; 88307; 99284; 99285; J0131; J0290; J0456; J0670; J1100; J1580; J1885; J2001; J2274; J2405; J2590; J2704; J3010; J3490; J7050

== ENCOUNTER 2018-07-23 17:12 | Emergency (ER) | payer OTHER | END 2018-07-23 18:05 | disposition home or self-care (01) | LOC: ERS 17:12 | DX: O90.89 Other complications of the puerperium, not elsewhere classified (principal); S31.109A Unspecified open wound of abdominal wall, unspecified quadrant without penetration into peritoneal cavity, initial encounter; X58.XXXA Exposure to other specified factors, initial encounter | CPT/HCPCS: 99282 ==

== ENCOUNTER 2019-01-15 18:20 | Emergency (ER) | payer OTHER, SELFPAY | END 2019-01-15 20:12 | disposition home or self-care (01) | LOC: ERS 18:20 | DX: K02.9 Dental caries, unspecified (principal) | CPT/HCPCS: 99283 ==

== ENCOUNTER 2019-11-30 00:30 | Emergency (ER) | payer SELFPAY ==
[2019-11-30] MEDS ORDERED: Ketorolac Tromethamine 30 MG/ML VIAL ONE (00:43)
[2019-11-30 01:07] LABS: Pregnancy Test - Urine (BHCG) Negative (Negative); Pregu Control Background? CLEAR/WHITE (CLR/WHITE); Pregu Control Bar Appear? YES (CONTROL BAR); Specific Gravity 1.023 (1.002-1.036)
[2019-11-30 01:09] LABS: Bacteria/HPF 1+ HPF (None Seen); Bilirubin Negative (Negative); Blood, Urine Negative (Negative); Clarity Turbid (Clear); Glucose, Urine (Dipstick) Normal (Negative); Leukocyte 500 Leu/uL (Negative); Nitrite Negative (Negative); Protein, Urine (Dipstick) 10 mg/dL (Neg-Trace); Squamous Epithelial 21-50 HPF (0-3); Urobilinogen Normal mg/dL (Less than 2); WBC/HPF Greater than 50 HPF (0-3)
== END 2019-11-30 01:31 | disposition home or self-care (01) ==
LOC: ERS 00:30
DX: N39.0 Urinary tract infection, site not specified (principal)
CPT/HCPCS: 81003; 81015; 81025; 99284; J1885

== ENCOUNTER 2020-03-05 06:38 | Emergency (ER) | payer BC | END 2020-03-05 07:20 | disposition home or self-care (01) | LOC: ERS 06:38 | DX: M54.5 Low back pain (principal) | CPT/HCPCS: 99283 ==

== ENCOUNTER 2020-03-30 13:16 | Emergency (ER) | payer BC ==
[2020-03-30 13:49] LABS: #Basophils 0.1 thou/uL (0.0-0.2); #Eosinphils 0.4 thou/uL (0.0-0.7); #Lymphocytes 3.1 thou/uL (1.20-3.40); #Monocytes 0.6 thou/uL (0.11-0.59); %Basophils 0.6 % (0.0-1.0); %Eosinophils 3.7 % (0.0-10.0); %Lymphocytes 27.7 % (21.0-51.0); %Monocytes 5.4 % (0.0-10.0); %Neutrophils 62.5 % (42.0-75.0); Hemoglobin 10.5 g/dL (12.0-16.0); Mean Corpuscular HGB CONC 32.3 g/dL (32.0-36.0); Mean Corpuscular Hemoglobin 24.7 pg (27.0-31.0); Mean Corpuscular Volume 76.3 fL (78.0-98.0); Mean Platelet Volume 7.3 fL (7.4-10.4); Platelet Count 277 thou/uL (130-400); RBC Distribution Width 14.1 % (11.5-14.5); Red Blood Cell (RBC) Count 4.26 mill/uL (4.20-5.40); White Blood Cell (WBC) Count 11.1 thou/uL (4.8-10.8)
[2020-03-30 13:52] LABS: BHCG - Serum POSITIVE (NEGATIVE); Pregs Control Background? CLEAR/WHITE (CLR/WHITE); Pregs Control Bar Appear? YES (CONTROL BAR)
[2020-03-30 14:11] LABS: ALT (SGPT) 9 U/L (8-55); AST (SGOT) 20 U/L (5-34); Albumin 3.9 g/dL (3.5-5.0); Alkaline Phosphatase 46 U/L (40-110); Anion Gap 13 mmol/L (10-20); BUN (Urea Nitrogen) 9 mg/dL (7.0-18.7); Bilirubin, Total 0.2 mg/dL (0.2-1.2); Calc. Creatinine Clearance 0 mL/min (70-130); Calcium 8.8 mg/dL (7.8-10.44); Carbon Dioxide 22 mmol/L (22-29); Chloride 104 mmol/L (98-107); Estimated GFR-MDRD Greater than 90; Globulin 3.6 g/dL (2.4-3.5); Glucose 102 mg/dL (70-105); Lipase 23 U/L (8-78); Potassium 3.5 mmol/L (3.5-5.1); Protein, Total 7.5 g/dL (6.0-8.3); Sodium 135 mmol/L (136-145)
--- NOTE | 2020-03-30 15:19 | ULT ---
Exam: Transabdominal pelvic ultrasound HISTORY: patient. Vaginal bleeding. TECHNIQUE: Transabdominal imaging of the pelvis is performed. Ovaries are interrogated with grayscale imaging FINDINGS: Uterus is identified, measuring 7.3 x 11.8 x 8.7 cm. No obvious myometrial masses Within the endometrium, there is a gestational sac and pole. Yolk sac is not appreciated. No lr bchorionic hemorrhage [place]-rump length is 4.96 cm corresponding to gestational age of 11 weeks 5 days heart tones: 157 bpm Free fluid: None Left and right adnexa: Neither ovary is appreciated. No obvious masses or free fluid in the left or r ight adnexa. IMPRESSION: 1. Single intrauterine gestation with heart tones. Gestational age by crown-rump length is 11 w eeks 5 days. 2. Follow-up ultrasound in 18-20 weeks gestation to perform a survey
== END 2020-03-30 16:00 | disposition home or self-care (01) ==
LOC: ERS 13:16
DX: O20.9 Hemorrhage in early pregnancy, unspecified (principal); O99.89 Other specified diseases and conditions complicating pregnancy, childbirth and the puerperium; R10.9 Unspecified abdominal pain; Z3A.11 11 weeks gestation of pregnancy
CPT/HCPCS: 36415; 76856; 80053; 83690; 84702; 84703; 85025; 86900; 86901; 93976

== ENCOUNTER 2020-05-07 21:22 | Emergency (ER) | payer BC | END 2020-05-08 01:06 | disposition left against medical advice (07) | LOC: ERS 21:22 | DX: Z53.21 Procedure and treatment not carried out due to patient leaving prior to being seen by health care provider (principal) ==

== ENCOUNTER 2020-06-02 13:28 | Emergency (ER) | payer BC ==
[2020-06-02] MEDS ORDERED: Lorazepam 2 MG/ML VIAL ONE (13:44)
[2020-06-02 14:56] LABS: #Basophils 0.1 thou/uL (0.0-0.2); #Eosinphils 0.4 thou/uL (0.0-0.7); #Lymphocytes 1.9 thou/uL (1.20-3.40); #Monocytes 0.6 thou/uL (0.11-0.59); %Basophils 0.5 % (0.0-1.0); %Eosinophils 3.7 % (0.0-10.0); %Lymphocytes 17.4 % (21.0-51.0); %Neutrophils 73.4 % (42.0-75.0); Hemoglobin 8.6 g/dL (12.0-16.0); Mean Corpuscular HGB CONC 32.6 g/dL (32.0-36.0); Mean Corpuscular Hemoglobin 25.1 pg (27.0-31.0); Mean Corpuscular Volume 77.2 fL (78.0-98.0); Platelet Count 250 thou/uL (130-400); RBC Distribution Width 13.1 % (11.5-14.5); White Blood Cell (WBC) Count 10.9 thou/uL (4.8-10.8)
[2020-06-02 15:17] LABS: ALT (SGPT) Less than 7 U/L (8-55); AST (SGOT) 14 U/L (5-34); Albumin 3.2 g/dL (3.5-5.0); Alkaline Phosphatase 52 U/L (40-110); Anion Gap 12 mmol/L (10-20); BUN (Urea Nitrogen) 9 mg/dL (7.0-18.7); Bilirubin, Total 0.2 mg/dL (0.2-1.2); Calc. Creatinine Clearance 0 mL/min (70-130); Calcium 8.4 mg/dL (7.8-10.44); Carbon Dioxide 20 mmol/L (22-29); Chloride 106 mmol/L (98-107); Estimated GFR-MDRD Greater than 90; Globulin 3.4 g/dL (2.4-3.5); Glucose 83 mg/dL (70-105); Magnesium 1.6 mg/dL (1.6-2.6); Potassium 3.3 mmol/L (3.5-5.1); Protein, Total 6.6 g/dL (6.0-8.3); Sodium 135 mmol/L (136-145)
[2020-06-02 15:18] LABS: Bilirubin Negative (Negative); Blood, Urine Negative (Negative); Clarity Clear (Clear); Glucose, Urine (Dipstick) Normal (Negative); Ketone, Urine Negative (Negative); Leukocyte 500 Leu/uL (Negative); Mucous/LPF 2+ LPF (<2+); Nitrite Negative (Negative); Protein, Urine (Dipstick) 20 mg/dL (Neg-Trace); Specific Gravity, Urine 1.019 (1.002-1.036); Squamous Epithelial 0-3 HPF (0-3); Urobilinogen Normal mg/dL (Less than 2)
[2020-06-02 15:21] LABS: Medtox Reader # READER 1
[2020-06-02 15:22] LABS: Amphetamine Not Detected (NotDetected); Barbiturates Screen Not Detected (NotDetected); Benzodiazepine Screen Detected (NotDetected); Cocaine Metabolite Screen Not Detected (NotDetected); Medtox Control Line Valid? VALID (VALID); Methadone Not Detected (NotDetected); Methamphetamine Not Detected (NotDetected); Opiate Screen Not Detected (NotDetected); Oxycodone Screen Not Detected (NotDetected); Phencyclidine (PCP) Not Detected (NotDetected); THC/Cannabinoid Screen Not Detected (NotDetected); Tricyclic Screen Not Detected (NotDetected)
[2020-06-02 15:28] LABS: Bacteria/HPF None Seen HPF (None Seen)
[2020-06-02 15:29] LABS: Trichomonas/HPF 1+ HPF (None Seen)
== END 2020-06-02 18:08 | disposition home or self-care (01) ==
LOC: ERS 13:28
DX: O99.891 Other specified diseases and conditions complicating pregnancy (principal); R41.82 Altered mental status, unspecified; R56.9 Unspecified convulsions; O99.342 Other mental disorders complicating pregnancy, second trimester; F41.9 Anxiety disorder, unspecified; O98.312 Other infections with a predominantly sexual mode of transmission complicating pregnancy, second trimester; A59.01 Trichomonal vulvovaginitis
CPT/HCPCS: 36415; 51701; 80053; 80306; 81003; 81015; 82570; 83735; 84156; 85025; 93005; 96374; J2060

== ENCOUNTER 2020-07-05 17:39 | Emergency (ER) | payer BC, OTHER ==
[2020-07-05 18:27] LABS: Hemoglobin 8.2 g/dL (12.0-16.0); Mean Corpuscular HGB CONC 33.4 g/dL (32.0-36.0); Mean Corpuscular Hemoglobin 24.5 pg (27.0-31.0); Mean Corpuscular Volume 73.2 fL (78.0-98.0); Mean Platelet Volume 6.7 fL (7.4-10.4); Platelet Count 269 thou/uL (130-400); RBC Distribution Width 12.9 % (11.5-14.5); Red Blood Cell (RBC) Count 3.35 mill/uL (4.20-5.40); White Blood Cell (WBC) Count 10.9 thou/uL (4.8-10.8)
[2020-07-05 18:49] LABS: ALT (SGPT) Less than 7 U/L (8-55); AST (SGOT) 13 U/L (5-34); Albumin 3.3 g/dL (3.5-5.0); Alkaline Phosphatase 75 U/L (40-110); Anion Gap 12 mmol/L (10-20); BUN (Urea Nitrogen) 9 mg/dL (7.0-18.7); Bilirubin, Total 0.2 mg/dL (0.2-1.2); Calc. Creatinine Clearance 0 mL/min (70-130); Calcium 7.9 mg/dL (7.8-10.44); Carbon Dioxide 21 mmol/L (22-29); Chloride 107 mmol/L (98-107); Globulin 3.8 g/dL (2.4-3.5); Glucose 109 mg/dL (70-105); Potassium 3.3 mmol/L (3.5-5.1); Protein, Total 7.1 g/dL (6.0-8.3); Sodium 137 mmol/L (136-145)
[2020-07-05 18:51] LABS: #Eosinphils 0.4 thou/uL (0.0-0.7); #Lymphocytes 2.4 thou/uL (1.20-3.40); #Monocytes 0.7 thou/uL (0.11-0.59); #Neutrophils 7.5 thou/uL (1.40-6.50); %Basophils 0.3 % (0.0-1.0); %Eosinophils 3.4 % (0.0-10.0); %Lymphocytes 21.6 % (21.0-51.0); %Neutrophils 68.7 % (42.0-75.0); Elliptocytes SLIGHT = 2-5 cells (100X) (0-1/hpf); MDiff Complete? YES; Microcytosis SLIGHT = 6-15 cells (100X) (0-5/hpf); Platelet Morphology Comment Appears Adequate; Polychromasia SLIGHT = 2-3 cells (100X) (0-2/hpf)
== END 2020-07-05 21:39 | disposition left against medical advice (07) ==
LOC: ERS 17:39
DX: Z53.21 Procedure and treatment not carried out due to patient leaving prior to being seen by health care provider (principal)
CPT/HCPCS: 36415; 80053; 85025; 93005

== ENCOUNTER 2021-07-29 14:01 | Emergency (ER) | payer BC, OTHER ==
[2021-07-29] MEDS ORDERED: levETIRAcetam 500 MG TAB PO SCH (15:30)
[2021-07-29 15:34] LABS: #Basophils 0.1 thou/uL (0.0-0.2); #Eosinphils 0.2 thou/uL (0.0-0.7); #Lymphocytes 2.7 thou/uL (1.20-3.40); #Monocytes 0.5 thou/uL (0.11-0.59); #Neutrophils 5.4 thou/uL (1.40-6.50); %Basophils 0.6 % (0.0-1.0); %Eosinophils 2.7 % (0.0-10.0); %Monocytes 5.5 % (0.0-10.0); %Neutrophils 61.1 % (42.0-75.0); Hemoglobin 10.7 g/dL (12.0-16.0); Mean Corpuscular HGB CONC 32.4 g/dL (32.0-36.0); Mean Corpuscular Volume 74.1 fL (78.0-98.0); Mean Platelet Volume 7.2 fL (7.4-10.4); Platelet Count 273 thou/uL (130-400); RBC Distribution Width 15.2 % (11.5-14.5); Red Blood Cell (RBC) Count 4.47 mill/uL (4.20-5.40); White Blood Cell (WBC) Count 8.9 thou/uL (4.8-10.8)
[2021-07-29 15:49] LABS: ALT (SGPT) Less than 7 U/L (8-55); AST (SGOT) 14 U/L (5-34); Albumin 4.2 g/dL (3.5-5.0); Alkaline Phosphatase 38 U/L (40-110); Anion Gap 10 mmol/L (10-20); BUN (Urea Nitrogen) 11 mg/dL (7.0-18.7); Bilirubin, Total 0.7 mg/dL (0.2-1.2); Calc. Creatinine Clearance 0 mL/min (70-130); Calcium 9.3 mg/dL (7.8-10.44); Carbon Dioxide 27 mmol/L (22-29); Chloride 105 mmol/L (98-107); Globulin 3.8 g/dL (2.4-3.5); Glucose 94 mg/dL (70-105); Potassium 3.3 mmol/L (3.5-5.1); Sodium 139 mmol/L (136-145)
[2021-07-29 15:50] LABS: MDiff Complete? YES; Microcytosis SLIGHT = 6-15 cells (100X) (0-5/hpf); Ovalocytes SLIGHT = 2-5 cells (100X) (0-1/hpf); Platelet Morphology Comment Appears Adequate; Polychromasia SLIGHT = 2-3 cells (100X) (0-2/hpf)
[2021-07-29 17:00] LABS: Bacteria/HPF 4+ HPF (None Seen); Bilirubin Negative (Negative); Blood, Urine 2+ (Negative); Glucose, Urine (Dipstick) Normal (Negative); Ketone, Urine Negative (Negative); Leukocyte 500 Leu/uL (Negative); Nitrite Negative (Negative); Protein, Urine (Dipstick) 20 mg/dL (Neg-Trace); Specific Gravity, Urine 1.024 (1.002-1.036); Urobilinogen Normal mg/dL (Less than 2); WBC/HPF Greater than 50 HPF (0-3)
[2021-07-29 17:01] LABS: Clarity Cloudy (Clear); Pregnancy Test - Urine (BHCG) Negative (Negative); Pregu Control Background? CLEAR/WHITE (CLR/WHITE); Pregu Control Bar Appear? YES (CONTROL BAR); Specific Gravity 1.024 (1.002-1.036)
== END 2021-07-29 17:51 | disposition home or self-care (01) ==
LOC: ERS 14:01
DX: R55 Syncope and collapse (principal); N30.00 Acute cystitis without hematuria; R51.9 Headache, unspecified; G40.909 Epilepsy, unspecified, not intractable, without status epilepticus; Z79.899 Other long term (current) drug therapy
CPT/HCPCS: 36415; 70450; 71045; 72125; 80053; 81003; 81015; 81025; 85025; 93005

== ENCOUNTER 2022-02-07 17:00 | Emergency (ER) | payer BC, OTHER ==
[2022-02-07 18:05] LABS: #Lymphocytes 0.8 thou/uL (1.20-3.40); #Monocytes 0.3 thou/uL (0.11-0.59); #Neutrophils 7.5 thou/uL (1.40-6.50); %Basophils 0.1 % (0.0-1.0); %Eosinophils 0.2 % (0.0-10.0); %Lymphocytes 9.4 % (21.0-51.0); %Monocytes 3.1 % (0.0-10.0); %Neutrophils 87.2 % (42.0-75.0); Hemoglobin 10.6 g/dL (12.0-16.0); Mean Corpuscular HGB CONC 30.8 g/dL (32.0-36.0); Mean Corpuscular Hemoglobin 23.5 pg (27.0-31.0); Mean Corpuscular Volume 76.3 fL (78.0-98.0); Mean Platelet Volume 7.4 fL (7.4-10.4); Platelet Count 261 thou/uL (130-400); RBC Distribution Width 14.9 % (11.5-14.5); Red Blood Cell (RBC) Count 4.52 mill/uL (4.20-5.40); White Blood Cell (WBC) Count 8.6 thou/uL (4.8-10.8)
[2022-02-07 18:20] LABS: BHCG - Serum Negative (NEGATIVE); Pregs Control Background? CLEAR/WHITE (CLR/WHITE); Pregs Control Bar Appear? YES (CONTROL BAR)
[2022-02-07 18:27] LABS: ALT (SGPT) 7 U/L (8-55); AST (SGOT) 17 U/L (5-34); Albumin 4.4 g/dL (3.5-5.0); Alkaline Phosphatase 42 U/L (40-110); Anion Gap 15 mmol/L (10-20); BUN (Urea Nitrogen) 9 mg/dL (7.0-18.7); Bilirubin, Total 0.9 mg/dL (0.2-1.2); Calc. Creatinine Clearance 0 mL/min (70-130); Calcium 9.2 mg/dL (7.8-10.44); Carbon Dioxide 23 mmol/L (22-29); Chloride 104 mmol/L (98-107); Estimated GFR 117; Globulin 3.8 g/dL (2.4-3.5); Glucose 96 mg/dL (70-105); Lipase 10 U/L (8-78); Potassium 3.8 mmol/L (3.5-5.1); Protein, Total 8.2 g/dL (6.0-8.3); Sodium 138 mmol/L (136-145)
[2022-02-07] MEDS ORDERED: Ondansetron ODT 4 MG TAB ONE (18:44)
== END 2022-02-07 18:52 | disposition home or self-care (01) ==
LOC: ERS 17:00
DX: R11.2 Nausea with vomiting, unspecified (principal); G40.909 Epilepsy, unspecified, not intractable, without status epilepticus; Z20.822 Contact with and (suspected) exposure to COVID-19; Z79.899 Other long term (current) drug therapy
CPT/HCPCS: 36415; 80053; 83690; 84703; 85025; 99284; Q0162; U0003; U0005

== ENCOUNTER 2022-10-16 00:59 | Emergency (ER) | payer OTHER ==
[2022-10-16 02:58] LABS: ALT (SGPT) Less than 7 U/L (8-55); AST (SGOT) 14 U/L (5-34); Albumin 3.3 g/dL (3.5-5.0); Alkaline Phosphatase 43 U/L (40-110); Anion Gap 9 mmol/L (10-20); BUN (Urea Nitrogen) 8 mg/dL (7.0-18.7); Bilirubin, Total 0.2 mg/dL (0.2-1.2); Calc. Creatinine Clearance 0 mL/min (70-130); Calcium 8.1 mg/dL (7.8-10.44); Carbon Dioxide 21 mmol/L (22-29); Chloride 107 mmol/L (98-107); Estimated GFR 131; Globulin 3.3 g/dL (2.4-3.5); Glucose 87 mg/dL (70-105); Potassium 3.4 mmol/L (3.5-5.1); Protein, Total 6.6 g/dL (6.0-8.3); Sodium 134 mmol/L (136-145)
[2022-10-16 03:01] LABS: #Eosinphils 0.4 thou/uL (0.0-0.7); #Lymphocytes 2.8 thou/uL (1.20-3.40); #Monocytes 0.5 thou/uL (0.11-0.59); #Neutrophils 5.6 thou/uL (1.40-6.50); %Basophils 0.2 % (0.0-1.0); %Lymphocytes 29.9 % (21.0-51.0); %Monocytes 5.7 % (0.0-10.0); %Neutrophils 60.2 % (42.0-75.0); Hemoglobin 8.1 g/dL (12.0-16.0); Mean Corpuscular HGB CONC 33.3 g/dL (32.0-36.0); Mean Corpuscular Hemoglobin 24.5 pg (27.0-31.0); Mean Corpuscular Volume 73.7 fl (78.0-98.0); Mean Platelet Volume 6.9 fL (7.4-10.4); Platelet Count 232 10x3/uL (130-400); RBC Distribution Width 13.9 % (11.5-14.5); White Blood Cell (WBC) Count 9.3 10x3/uL (4.8-10.8)
[2022-10-16] MEDS ORDERED: levETIRAcetam 500 MG/5 ML VIAL ONE (04:09)
== END 2022-10-16 04:50 | disposition home or self-care (01) ==
LOC: ERS 00:59
DX: R56.9 Unspecified convulsions (principal); D64.9 Anemia, unspecified
CPT/HCPCS: 36415; 80053; 85025; 96374; J1953